=== PATIENT | male | born 1960 | race Two or more races ===

== ENCOUNTER 2017-02-24 14:30 | Emergency (ER) | payer SELFPAY | END 2017-02-24 14:37 | disposition left against medical advice (07) | LOC: ER 14:30 | DX: H57.13 Ocular pain, bilateral (principal); Z53.21 Procedure and treatment not carried out due to patient leaving prior to being seen by health care provider ==

== ENCOUNTER 2022-02-18 16:39 | Inpatient (IN) | payer MEDICAID, OTHER ==
[~2022-02-18] VITALS: Ht 170.2 cm; Wt 88.1 kg
[2022-02-18] MEDS ORDERED: AMIODARONE HCL 150 MG in D5W 5% 100 ML IV ONE (17:15)
[2022-02-18] MEDS ORDERED: AMIODARONE 450mg/250ml AE 250 ML IV SCH (17:15)
[2022-02-18] MEDS ORDERED: AMIODARONE 450mg/250ml AE 250 ML IV ONE (17:16)
[2022-02-18] MEDS ORDERED: AMIODARONE HCL (50 MG/ ML) 3 ML VIAL IV ONE (17:16)
[2022-02-18 17:32] LABS: Basophils # (auto) 0.3 10 ^3/uL (0-0.2); Basophils % (auto) 2.1 % (0.0-2.0); Eosinophils # (auto) 0.1 10 ^3/uL (0-0.8); Eosinophils % (auto) 0.4 % (0.0-7.0); Hematocrit 42.5 % (41.0-53.0); Hemoglobin 13.6 g/dL (13.5-17.5); Lymphocytes # (auto) 0.9 10 ^3/uL (0.4-5.4); Lymphocytes % (auto) 6.4 % (10.0-50.0); Mean Corpuscular Hemoglobin 28.7 pg (28.0-32.0); Mean Corpuscular Hgb Conc. 32.1 g/dL (32.0-36.0); Mean Corpuscular Volume 89.4 fL (80.0-100.0); Monocytes # (auto) 0.4 10 ^3/uL (0-1.3); Monocytes % (auto) 2.7 % (0.0-12.0); Neutrophils # (auto) 12.5 10 ^3/uL (1.6-8.6); Neutrophils % (auto) 88.4 % (37.0-80.0); Red Blood Cells 4.75 10^6/uL (4.5-5.90); Red Cell Distribution Width 13.9 % (11.8-14.3); White Blood Cell 14.1 10^3/uL (4.4-10.8)
[2022-02-18] MEDS ORDERED: SODIUM CHLORIDE 0.9% 1,000 ML IV ONE (17:45)
[2022-02-18] MEDS ORDERED: HEPARIN 1,000 UNITS/ml 1ML VIAL IV ONE (17:45)
[2022-02-18] MEDS ORDERED: ASPirin 81 mg TAB PO ONE (17:45)
[2022-02-18 17:48] LABS: Albumin 3.8 g/dL (3.4-5.0); BUN/Creatinine Ratio 14.8; Calcium 9.1 mg/dL (8.5-10.1); Potassium 5.5 mmol/L (3.5-5.1)
[2022-02-18] MEDS ORDERED: ASPirin-EC 81 mg tab PO ONE (17:50)
[2022-02-18] MEDS ORDERED: HEPARIN SODIUM (PORCINE) 5000 UNITS/ML 1ML VIAL ONE ×2 (17:50→18:28)
[2022-02-18 17:51] LABS: Bilirubin, Total 0.5 mg/dL (0.2-1.0); Total Protein 7.9 g/dL (6.4-8.2)
[2022-02-18] MEDS ORDERED: LIDOCAINE 2%HCL (LOCAL ANESTH.) INJ 10ml MDV ONE (18:22)
[2022-02-18] MEDS ORDERED: IODIXANOL 320MG/ML 100ML BTL IV ONE (18:22)
[2022-02-18] MEDS ORDERED: ANGIOMAX 250 MG VIAL IV ONE (18:28)
[2022-02-18] MEDS ORDERED: VERAPAMIL 2.5MG/ML INJ 2ML VIAL IV ONE (18:28)
[2022-02-18] MEDS ORDERED: MIDAZOLAM HCL 2MG/2ML 2ml VIAL (1mg/ml) ONE (18:28)
[2022-02-18] MEDS ORDERED: fentaNYL CITRATE 100 MCG/2 ML VL ONE (18:28)
[2022-02-18] MEDS ORDERED: SODIUM CHL 0.9% 50 ML ONE (18:28)
[2022-02-18] MEDS ORDERED: SODIUM CHLORIDE 0.9% 500 ML IV ONE (18:30)
[2022-02-18 18:46] LABS: INR 1.03 (0.9-1.15); Partial Thromboplastin Time 25.6 sec (24.6-33.4)
[2022-02-18 20:10] VITALS: BP 109/63
[2022-02-18] MEDS ORDERED: FUROSEMIDE 40 MG/4 ML VIAL IV ONE (20:15)
[2022-02-18] MEDS ORDERED: NOREPINEPHRINE 8 MG/250ML KIT 250 ML IV SCH (20:15)
[2022-02-18] MEDS ORDERED: MORPHINE SULFATE INJ 2 MG/ml SYRG IV PRN (20:15)
[2022-02-18] MEDS ORDERED: NITROGLYCERIN 0.4 MG SL TAB SL PRN (20:15)
[2022-02-18 20:25] VITALS: BP 93/59
[2022-02-18 20:40] VITALS: BP 111/66
[2022-02-18 20:55] VITALS: BP 106/68
[2022-02-18 21:09] VITALS: BP 108/70
[2022-02-18 22:00] VITALS: BP 121/62
[2022-02-18] MEDS: TICAGRELOR 90 MG TAB PO SCH (22:00)
[2022-02-18] MEDS: ATORVASTATIN 20 MG TAB PO SCH (22:00)
[2022-02-19] VITALS (23 sets, daily range): BP systolic 60–230; BP diastolic 31–132
[2022-02-19] MEDS ORDERED: ONDANSETRON HCL 4 MG/2 ML VIAL IV PRN (01:00)
[2022-02-19] MEDS ORDERED: ACETAMINOPHEN 325 MG TAB PO PRN (01:00)
[2022-02-19] MEDS ORDERED: ONDANSETRON HCL 4 MG/2 ML VIAL ONE (01:20)
[2022-02-19] MEDS ORDERED: AMIODARONE 450mg/250ml AE 250 ML IV ONE (02:47)
[2022-02-19] MEDS ORDERED: ALBUTEROL SULF 2.5 MG/0.5ML(0.5%) NEB SOLN ONE (03:09)
[2022-02-19] MEDS ORDERED: IPRATROPIUM BROM 0.5 MG/2.5ML INH SOL ONE (03:10)
[2022-02-19 03:20] LABS: Albumin 3.3 g/dL (3.4-5.0); BUN/Creatinine Ratio 14.2; Calcium 7.8 mg/dL (8.5-10.1)
[2022-02-19 03:28] LABS: Bilirubin, Total 0.7 mg/dL (0.2-1.0); Potassium 6.5 mmol/L (3.5-5.1); Total Protein 6.9 g/dL (6.4-8.2)
[2022-02-19] MEDS ORDERED: FUROSEMIDE 40 MG/4 ML VIAL ONE (03:39)
[2022-02-19 03:40] LABS: Basophils # (auto) 0 10 ^3/uL (0-0.2); Basophils % (auto) 0.1 % (0.0-2.0); Eosinophils # (auto) 0 10 ^3/uL (0-0.8); Hematocrit 46.2 % (41.0-53.0); Hemoglobin 14.6 g/dL (13.5-17.5); Lymphocytes % (auto) 5.2 % (10.0-50.0); Mean Corpuscular Hemoglobin 28.9 pg (28.0-32.0); Mean Corpuscular Hgb Conc. 31.7 g/dL (32.0-36.0); Mean Corpuscular Volume 91.3 fL (80.0-100.0); Monocytes # (auto) 1.1 10 ^3/uL (0-1.3); Monocytes % (auto) 5.3 % (0.0-12.0); Neutrophils # (auto) 17.6 10 ^3/uL (1.6-8.6); Neutrophils % (auto) 89.4 % (37.0-80.0); Red Blood Cells 5.06 10^6/uL (4.5-5.90); Red Cell Distribution Width 14.4 % (11.8-14.3); White Blood Cell 19.8 10^3/uL (4.4-10.8)
[2022-02-19] MEDS ORDERED: FUROSEMIDE 40 MG/4 ML VIAL IV ONE (03:45)
[2022-02-19 03:53] LABS: Magnesium 1.8 mg/dL (1.6-2.6)
[2022-02-19] MEDS ORDERED: CALCIUM GLUC 1,000mg/50ml-NS 50 ML IV ONE ×2 (04:15→04:17)
[2022-02-19] MEDS ORDERED: SODIUM BICARBONATE 8.4% INJ 50ML SYRINGE IV ONE ×3 (04:15→18:11)
[2022-02-19] MEDS ORDERED: DEXTROSE (50%) 50ML SYRG IV PRN (04:15)
[2022-02-19] MEDS ORDERED: SODIUM ZIRCONIUM CYCL 10 GM PAK PO ONE (04:15)
[2022-02-19] MEDS ORDERED: LORazepam 2MG/ML-1ML VIAL IV PRN (04:15)
[2022-02-19] MEDS ORDERED: InsuLIN REG 1unit/0.01ml Soln (100units/ml) IV ONE (04:15)
[2022-02-19] MEDS ORDERED: DEXTROSE (50%) 50ML SYRG IV ONE (04:15)
[2022-02-19] MEDS ORDERED: DEXTROSE 50% SYRINGE 50 ML IV ONE (04:17)
[2022-02-19] MEDS ORDERED: SODIUM BICARBONATE 8.4% INJ 50ML SYRINGE ONE ×3 (04:17→11:45)
[2022-02-19] MEDS ORDERED: SOD CHL IV SCH (06:00)
[2022-02-19] MEDS ORDERED: SODIUM BICARBONATE 8.4 % INJ 50ML VIAL IV ONE ×3 (06:00→10:45)
[2022-02-19] MEDS ORDERED: SODIUM BICARBONATE IV SCH (06:00)
[2022-02-19] MEDS: ALBUTEROL SULF 2.5 MG/0.5ML(0.5%) NEB SOLN NEB SCH ×3 (06:18→14:00)
[2022-02-19] MEDS: IPRATROPIUM BROM 0.5 MG/2.5ML INH SOL NEB SCH ×3 (06:18→14:00)
[2022-02-19] MEDS: ACCU-CHEK COMFORT CURVE STRIP VI SCH ×2 (07:15→12:00)
[2022-02-19] MEDS: InsuLIN REG 1unit/0.01ml Soln (100units/ml) SC SCH ×2 (07:15→12:00)
[2022-02-19] MEDS ORDERED: ETOMIDATE (2MG/ML) 20ML VIAL IV ONE ×2 (07:52→07:55)
[2022-02-19] MEDS ORDERED: SUCCINYLCHOLINE CHLORIDE 20 MG/ML 10ML VIAL IV ONE (07:55)
[2022-02-19] MEDS ORDERED: MIDAZOLAM DRIP 50 mg/50mL 50 ML IV ONE ×2 (07:56→08:04)
[2022-02-19] MEDS ORDERED: BUMETANIDE 2.5mg/10ml (0.25 mg/ml) INJ IV ONE (08:00)
[2022-02-19] MEDS ORDERED: fentaNYL Drip 2500mCg/250mlNS 250 ML IV ONE (08:13)
[2022-02-19] MEDS ORDERED: FUROSEMIDE 100 MG/10ML VIAL IV ONE (08:15)
[2022-02-19] MEDS ORDERED: BUMETANIDE INJECTION 10 ML ONE (08:25)
[2022-02-19] MEDS ORDERED: PROPOFOL 100 ML IV ONE (08:30)
[2022-02-19] MEDS ORDERED: fentaNYL Drip 2500mCg/250mlNS 250 ML IV SCH (08:30)
[2022-02-19] MEDS ORDERED: PHENYLEPHRINE IV 250 ML IV ONE ×2 (09:03→11:40)
[2022-02-19] MEDS ORDERED: DOPamine 1600MCG/ML D5W 250 ML IV ONE (09:06)
[2022-02-19] MEDS ORDERED: SODIUM CHL 0.9% 1000 ML BAG XX ONE (09:30)
[2022-02-19] MEDS ORDERED: ALBUMIN 25% 100 ML IV PRN (09:30)
[2022-02-19] MEDS ORDERED: ROCURONIUM 10MG/ML 10ML VIAL IV ONE (09:34)
[2022-02-19] MEDS ORDERED: NOREPINEPHRINE BITARTRATE 32 MG in SODIUM CHL 0.9% 218 ML IV SCH (09:45)
[2022-02-19] MEDS ORDERED: CISATRACURIUM BESYLATE IV SCH (09:45)
[2022-02-19] MEDS ORDERED: VANCOMYCIN PER PHARMACY 1,000 MG IV SCH (09:45)
[2022-02-19] MEDS ORDERED: PHENYLEPHRINE INJ 80 MG in SODIUM CHL 0.9% 242 ML IV SCH (09:45)
[2022-02-19] MEDS ORDERED: SODIUM CHL 0.9% IV SCH (09:45)
[2022-02-19] MEDS ORDERED: ASPirin 81 mg TAB PO SCH (10:00)
[2022-02-19] MEDS: ATORVASTATIN 20 MG TAB PO SCH (10:00)
[2022-02-19] MEDS ORDERED: VANCOMYCIN 1GM/250ML 250 ML IV ONE (10:00)
[2022-02-19] MEDS ORDERED: ATRACURIUM BESYLATE 1,000 MG in D5W 5% 150 ML IV SCH (10:00)
[2022-02-19] MEDS ORDERED: VASOPRESSIN 50 UNITS in D5W 5% 247.5 ML IV SCH (10:15)
[2022-02-19] MEDS ORDERED: InsuLIN REG 1unit/0.01ml Soln (100units/ml) ONE (10:26)
[2022-02-19] MEDS ORDERED: FUROSEMIDE 100 MG/10ML VIAL IV SCH (11:00)
[2022-02-19] MEDS ORDERED: SODIUM BICARBONATE 8.4 % INJ 50ML VIAL IV SCH (12:00)
[2022-02-19] MEDS ORDERED: MEROPENEM 500MG IVPB 50 ML IV SCH (14:00)
[2022-02-19 14:16] LABS: Potassium 3.3 mmol/L (3.5-5.1)
[2022-02-19 14:23] LABS: Calcium 5.6 mg/dL (8.5-10.1)
[2022-02-19] MEDS: TICAGRELOR 90 MG TAB PO SCH (14:31)
[2022-02-19] MEDS ORDERED: ATROPINE SULF 1 MG/10ml SYR IM ONE (18:09)
[2022-02-19] MEDS ORDERED: CALCIUM CHLOR(10%) 100MG/ML 10ML SYRINGE IV ONE (18:09)
[2022-02-19] MEDS ORDERED: EPINEPHrine HCL 1 MG/10 ML SYRG IV ONE ×2 (18:09→18:11)
[2022-02-21 14:16] LABS: Hepatitis A Ab IgM Negative
[2022-02-21 14:19] LABS: Hepatitis B Core IgM Negative
[2022-02-21 14:20] LABS: Hepatitis C Antibody Negative (Negative)
== END 2022-02-19 18:22 | DRG 710 ==
LOC: EDBD 16:39 → ER 16:39 → TELE 20:11 → ICU CENTRL 21:21
PROVIDERS: ADMIT Internal Medicine; ATTEND Internal Medicine Pulmonary Disease
PROC: 027034Z Dilation of Coronary Artery, One Artery with Drug-eluting Intraluminal Device, Percutaneous Approach (ICD-10-PCS; 2022-02-18)
PROC: 4A023N7 Measurement of Cardiac Sampling and Pressure, Left Heart, Percutaneous Approach (ICD-10-PCS; 2022-02-18)
PROC: B211YZZ Fluoroscopy of Multiple Coronary Arteries using Other Contrast (ICD-10-PCS; 2022-02-18)
PROC: 02C03ZZ Extirpation of Matter from Coronary Artery, One Artery, Percutaneous Approach (ICD-10-PCS; 2022-02-18)
PROC: 5A12012 Performance of Cardiac Output, Single, Manual (ICD-10-PCS; principal; 2022-02-19)
PROC: 5A09357 Assistance with Respiratory Ventilation, Less than 24 Consecutive Hours, Continuous Positive Airway Pressure (ICD-10-PCS; 2022-02-19)
PROC: 0BH17EZ Insertion of Endotracheal Airway into Trachea, Via Natural or Artificial Opening (ICD-10-PCS; 2022-02-19)
DX: A41.9 Sepsis, unspecified organism (principal); J96.01 Acute respiratory failure with hypoxia; I46.9 Cardiac arrest, cause unspecified; N17.0 Acute kidney failure with tubular necrosis; R65.21 Severe sepsis with septic shock; N18.9 Chronic kidney disease, unspecified; E87.2 Acidosis; I47.2 Ventricular tachycardia; E11.65 Type 2 diabetes mellitus with hyperglycemia; E87.5 Hyperkalemia; Z20.822 Contact with and (suspected) exposure to COVID-19; E78.5 Hyperlipidemia, unspecified; I45.10 Unspecified right bundle-branch block; I13.0 Hypertensive heart and chronic kidney disease with heart failure and stage 1 through stage 4 chronic kidney disease, or unspecified chronic kidney disease; I21.3 ST elevation (STEMI) myocardial infarction of unspecified site; I50.23 Acute on chronic systolic (congestive) heart failure
CPT/HCPCS: 36415; 36600; 71045; 80048; 80053; 80074; 82805; 82962; 83036; 83735; 84075; 84132; 84484; 85025; 85610; 85730; 86850; 86900; 86901; 87070; 87081; 87205; 90935; 92950; 92960; 93005; 93306; 94002; 94640; 94660; 96365; 96366; 96375; 99152; 99153; 99291; C1874; G0378; J0330; J1642; J1815; J2001; J2185; J2250; J2405; J2704; J7060; P9047; Q9967